=== PATIENT | female | born 1945 | race Caucasian/White ===

== ENCOUNTER → 2020-10-07 | Day surgery (SDC) | payer MEDICARE ==
[2020-10-02 14:25] LABS: BASOPHILS # (AUTO) 0.1 (0.0-0.1); BASOPHILS % 0.6 % (0.0-1.0); EOSINOPHILS % 0.2 % (0.0-6.0); HEMATOCRIT 32.5 % (34.2-44.1); HEMOGLOBIN 10.1 g/dL (12.0-16.0); LYMPHOCYTES # (AUTO) 2.4 (1.0-3.2); LYMPHOCYTES % 28.1 % (18.0-39.1); MEAN CORPUSCULAR HEMOGLOBIN 26.3 pg (28-32); MEAN CORPUSCULAR HGB CONC 31.1 g/dL (31-35); MEAN CORPUSCULAR VOLUME 84.6 fL (81-99); MONOCYTES # (AUTO) 0.8 (0.2-0.8); MONOCYTES % 9.4 % (4.4-11.3); NEUTROPHILS # (AUTO) 5.3 (2.1-6.9); NEUTROPHILS % 61.2 % (38.7-80.0); PLATELET COUNT 280 x10e3/uL (140-360); RED BLOOD COUNT 3.84 x10e6/uL (3.6-5.1); RED CELL DISTRIBUTION WIDTH 15.2 % (11.7-14.4)
[~2020-10-07] MED LIST: ATENOLOL50 MG PO; ELIQUIS5 MG PO; FENTANYL CITRATE/PF 100MCG/2 ML INJ ONE; HYDROCHLOROTH12.5 MG PO; MIDAZOLAM HCL 2 MG/2 ML VIAL ONE; NEURONTIN300 MG PO; NIFEDIPINE ER30 M1 PO; OMEPRAZOLE40 MG PO; OR PHACO EYE KIT ONE; PREOP PHACO EYE KIT ONE; TEGRETOL200 MG PO; TOPAMAX100 MG PO
== END | disposition home or self-care (01) ==
LOC: OR 09:25
PROVIDERS: ATTEND Ophthalmology
DX: H25.11 Age-related nuclear cataract, right eye (principal); G62.9 Polyneuropathy, unspecified; G50.0 Trigeminal neuralgia; I10 Essential (primary) hypertension; I48.91 Unspecified atrial fibrillation; E78.5 Hyperlipidemia, unspecified; K21.9 Gastro-esophageal reflux disease without esophagitis; Z88.1 Allergy status to other antibiotic agents; Z91.041 Radiographic dye allergy status; Z01.812 Encounter for preprocedural laboratory examination; Z20.822 Contact with and (suspected) exposure to COVID-19; Z87.891 Personal history of nicotine dependence
CPT/HCPCS: 36415; 66984; 85025; J2250; J3010; U0002; V2632

== ENCOUNTER → 2020-10-28 | Day surgery (SDC) | payer MEDICARE ==
[~2020-10-28] MED LIST changes: -FENTANYL CITRATE/PF 100MCG/2 ML INJ ONE; -MIDAZOLAM HCL 2 MG/2 ML VIAL ONE
[2020-10-28 12:32] VITALS: BP 123/63
== END | disposition home or self-care (01) ==
LOC: OR 09:18
PROVIDERS: ATTEND Ophthalmology
DX: H25.12 Age-related nuclear cataract, left eye (principal); M81.0 Age-related osteoporosis without current pathological fracture; G50.0 Trigeminal neuralgia; G43.909 Migraine, unspecified, not intractable, without status migrainosus; K21.9 Gastro-esophageal reflux disease without esophagitis; I10 Essential (primary) hypertension; I48.91 Unspecified atrial fibrillation; M41.9 Scoliosis, unspecified; Z01.812 Encounter for preprocedural laboratory examination; Z20.822 Contact with and (suspected) exposure to COVID-19; Z79.02 Long term (current) use of antithrombotics/antiplatelets
CPT/HCPCS: 66984; U0002; V2632

== ENCOUNTER 2022-03-24 15:00 | Inpatient (IN) | payer MEDICARE, OTHER ==
[~2022-03-24] VITALS: Ht 180.3 cm; Wt 94.6 kg
[~2022-03-24 15:00] MED LIST changes: -OR PHACO EYE KIT ONE; -PREOP PHACO EYE KIT ONE
[2022-03-24] MEDS ORDERED: ACETAMINOPHEN 325 MG TAB PO ONE (15:15)
[2022-03-24] MEDS ORDERED: Morphine 4mg INJECTION 4 MG/ML INJ IV PRN (17:15)
[2022-03-24] MEDS: ONDANSETRON HCL INJ 2MG/ML 2ML 2 MG/ML VIAL IV PRN (18:45)
[2022-03-24] MEDS: HYDROMORPHONE 1MG/1ML INJ IV PRN (18:46)
[2022-03-24 18:51] LABS: BASOPHILS # (AUTO) 0.1 (0.0-0.1); BASOPHILS % 0.5 % (0.0-1.0); EOSINOPHILS % 0.3 % (0.0-6.0); HEMOGLOBIN 12.6 g/dL (12.0-16.0); LYMPHOCYTES # (AUTO) 1.3 (1.0-3.2); LYMPHOCYTES % 13.1 % (18.0-39.1); MEAN CORPUSCULAR HGB CONC 34.1 g/dL (31-35); MEAN CORPUSCULAR VOLUME 91.1 fL (81-99); MONOCYTES # (AUTO) 0.4 (0.2-0.8); MONOCYTES % 4.5 % (4.4-11.3); NEUTROPHILS # (AUTO) 7.8 (2.1-6.9); PLATELET COUNT 237 x10e3/uL (140-360); RED BLOOD COUNT 4.06 x10e6/uL (3.6-5.1); RED CELL DISTRIBUTION WIDTH 13.3 % (11.7-14.4)
[2022-03-24 18:57] LABS: INR 0.89; PROTHROMBIN TIME 12.9 seconds (11.9-14.5)
[2022-03-24 18:58] LABS: PARTIAL THROMBOPLASTIN TIME 27.3 seconds (23.8-35.5)
[2022-03-24 19:03] LABS: ANION GAP 16.1 mmol/L (8-16); CALCIUM 9.3 mg/dL (8.4-10.2); CREATININE, SERUM 0.66 mg/dL (0.57-1.11); POTASSIUM 4.1 mmol/L (3.5-5.1)
[2022-03-24] MEDS: HYDROCODONE/APAP 10MG-325MG TAB PO PRN (20:44)
[2022-03-24 21:12] VITALS: BP 110/57
[2022-03-24 22:00] VITALS: BP 124/81
[2022-03-25] VITALS: BP 107/55
[2022-03-25 00:48] VITALS: BP 124/81
[2022-03-25] MEDS: HYDROMORPHONE 1MG/1ML INJ IV PRN ×3 (01:14→21:01)
[2022-03-25] MEDS: SODIUM CHLORIDE 0.9% 1000ML 1,000 ML IV SCH ×2 (01:26→19:45)
[2022-03-25] MEDS: SODIUM CHLORIDE 1 GM TAB PO SCH ×2 (01:29→03:00)
[2022-03-25 04:00] VITALS: BP 94/45
[2022-03-25 08:00] VITALS: BP_SYST 94; BP_DIAS 54; BP_DIAS 59
[2022-03-25] MEDS: ONDANSETRON HCL INJ 2MG/ML 2ML 2 MG/ML VIAL IV PRN ×3 (09:00→21:01)
[2022-03-25 12:00] VITALS: BP 113/49
[2022-03-25] MEDS: HYDROCODONE/APAP 10MG-325MG TAB PO PRN ×2 (13:14→18:50)
[2022-03-25 13:32] LABS: BASOPHILS % 0.3 % (0.0-1.0); EOSINOPHILS % 0.3 % (0.0-6.0); HEMATOCRIT 27.5 % (34.2-44.1); HEMOGLOBIN 8.9 g/dL (12.0-16.0); LYMPHOCYTES # (AUTO) 1.4 (1.0-3.2); LYMPHOCYTES % 21.3 % (18.0-39.1); MEAN CORPUSCULAR HEMOGLOBIN 30.9 pg (28-32); MEAN CORPUSCULAR HGB CONC 32.4 g/dL (31-35); MEAN CORPUSCULAR VOLUME 95.5 fL (81-99); MONOCYTES # (AUTO) 0.7 (0.2-0.8); NEUTROPHILS # (AUTO) 4.4 (2.1-6.9); NEUTROPHILS % 66.8 % (38.7-80.0); PLATELET COUNT 151 x10e3/uL (140-360); RED BLOOD COUNT 2.88 x10e6/uL (3.6-5.1); RED CELL DISTRIBUTION WIDTH 13.2 % (11.7-14.4)
[2022-03-25 13:44] LABS: INR 0.93; PROTHROMBIN TIME 13.3 seconds (11.9-14.5)
[2022-03-25 13:45] LABS: PARTIAL THROMBOPLASTIN TIME 26.5 seconds (23.8-35.5)
[2022-03-25 13:54] LABS: ALBUMIN/GLOBULIN RATIO 1.1 (0.8-2.0); ANION GAP 11.5 mmol/L (8-16); CALCIUM 8.4 mg/dL (8.4-10.2); CREATININE, SERUM 0.59 mg/dL (0.57-1.11); POTASSIUM 4.5 mmol/L (3.5-5.1)
[2022-03-25 16:00] VITALS: BP 122/51
[2022-03-25] MEDS ORDERED: FLONASE ALLERG9.9 ML INH (20:00)
[2022-03-25] MEDS ORDERED: FIBER TABS625 MG PO (20:00)
[2022-03-25] MEDS ORDERED: LEVOTHYROXINE50 MCG PO (20:00)
[2022-03-25] MEDS ORDERED: CEPHALEXIN500 MG PO (20:00)
[2022-03-26] VITALS (7 sets, daily range): BP systolic 117–157; BP diastolic 56–72
[2022-03-26 05:57] LABS: BASOPHILS % 0.3 % (0.0-1.0); EOSINOPHILS % 0.2 % (0.0-6.0); HEMATOCRIT 25.5 % (34.2-44.1); HEMOGLOBIN 8.6 g/dL (12.0-16.0); LYMPHOCYTES # (AUTO) 0.9 (1.0-3.2); LYMPHOCYTES % 13.9 % (18.0-39.1); MEAN CORPUSCULAR HEMOGLOBIN 31.3 pg (28-32); MEAN CORPUSCULAR HGB CONC 33.7 g/dL (31-35); MEAN CORPUSCULAR VOLUME 92.7 fL (81-99); MONOCYTES # (AUTO) 0.6 (0.2-0.8); MONOCYTES % 9.6 % (4.4-11.3); NEUTROPHILS # (AUTO) 4.8 (2.1-6.9); NEUTROPHILS % 75.7 % (38.7-80.0); PLATELET COUNT 136 x10e3/uL (140-360); RED BLOOD COUNT 2.75 x10e6/uL (3.6-5.1); RED CELL DISTRIBUTION WIDTH 13.6 % (11.7-14.4)
[2022-03-26 06:22] LABS: ANION GAP 11.9 mmol/L (8-16); CALCIUM 7.8 mg/dL (8.4-10.2); CREATININE, SERUM 0.53 mg/dL (0.57-1.11); POTASSIUM 3.9 mmol/L (3.5-5.1)
[2022-03-26] MEDS ORDERED: Vancomycin IV 1 GM VIAL ONE ×2 (13:42→14:41)
[2022-03-26] MEDS ORDERED: SODIUM CHLORIDE 0.9% 250ML 250 ML ONE (13:44)
[2022-03-26] MEDS ORDERED: HYDROMORPHONE 1MG/1ML INJ ONE (13:56)
[2022-03-26] MEDS ORDERED: ACETAMINOPHEN 1000 MG/100 ML 100 ML IV ONE (13:56)
[2022-03-26] MEDS ORDERED: FENTANYL CITRATE/PF 100MCG/2 ML INJ ONE (14:44)
[2022-03-26] MEDS ORDERED: MIDAZOLAM HCL 2 MG/2 ML VIAL ONE (14:44)
[2022-03-26] MEDS: SODIUM CHLORIDE 0.9% 1000ML 1,000 ML IV SCH (17:11)
[2022-03-26] MEDS: ATENOLOL 50 MG TAB PO SCH (17:14)
[2022-03-26] MEDS ORDERED: Vancomycin IV 1 GM in SODIUM CHLORIDE 0.9% 250ML 250 ML IV ONE (17:15)
[2022-03-26] MEDS: HYDROCODONE/APAP 10MG-325MG TAB PO PRN (19:30)
[2022-03-26] MEDS ORDERED: LIDOCAINE HCL 2% LOCAL INJ 5 ML SDV VIAL INJ ONE (19:32)
[2022-03-26] MEDS ORDERED: ACETAMINOPHEN 1000 MG/100 ML IV ONE (19:32)
[2022-03-26] MEDS ORDERED: SEVOFLURANE INHAL SOLN 250 ML PEN BTL ONE (19:32)
[2022-03-26] MEDS ORDERED: PROPOFOL IV EMULSION 10 MG/ML 20 ML VIAL ONE (19:32)
[2022-03-26] MEDS ORDERED: KETOROLAC TROMETHAMINE 30 MG/ML VIAL ONE (19:32)
[2022-03-26] MEDS ORDERED: DEXAMETHASONE SOD PHOS INJ 4 MG/ML SDV ONE (19:32)
[2022-03-26] MEDS ORDERED: ONDANSETRON HCL INJ 2MG/ML 2ML 2 MG/ML VIAL ONE (19:32)
[2022-03-26] MEDS ORDERED: POVIDONE IODINE 0.05% 0.05 % ML PO ONE (19:32)
[2022-03-26] MEDS: GABAPENTIN 300 MG CAP PO SCH (20:18)
[2022-03-26] MEDS: CARBAMAZEPINE 200 MG TAB PO SCH (20:18)
[2022-03-26] MEDS: HYDROMORPHONE 1MG/1ML INJ IV PRN (21:44)
[2022-03-27] VITALS (8 sets, daily range): BP systolic 94–130; BP diastolic 48–63
[2022-03-27] MEDS: LEVOTHYROXINE SODIUM 50 MCG TAB PO SCH (05:35)
[2022-03-27] MEDS ORDERED: LEVOTHYROXINE SODIUM 50 MCG TAB PO SCH (06:00)
[2022-03-27 06:14] LABS: BASOPHILS % 0.2 % (0.0-1.0); EOSINOPHILS % 0.1 % (0.0-6.0); HEMATOCRIT 23.9 % (34.2-44.1); HEMOGLOBIN 8.1 g/dL (12.0-16.0); LYMPHOCYTES # (AUTO) 1.1 (1.0-3.2); LYMPHOCYTES % 13.6 % (18.0-39.1); MEAN CORPUSCULAR HEMOGLOBIN 31.3 pg (28-32); MEAN CORPUSCULAR HGB CONC 33.9 g/dL (31-35); MEAN CORPUSCULAR VOLUME 92.3 fL (81-99); MONOCYTES # (AUTO) 0.9 (0.2-0.8); MONOCYTES % 10.5 % (4.4-11.3); NEUTROPHILS # (AUTO) 6.2 (2.1-6.9); PLATELET COUNT 146 x10e3/uL (140-360); RED BLOOD COUNT 2.59 x10e6/uL (3.6-5.1); RED CELL DISTRIBUTION WIDTH 13.5 % (11.7-14.4)
[2022-03-27 06:37] LABS: CALCIUM 8.1 mg/dL (8.4-10.2); CREATININE, SERUM 0.52 mg/dL (0.57-1.11)
[2022-03-27] MEDS: HYDROMORPHONE 1MG/1ML INJ IV PRN ×3 (08:35→19:02)
[2022-03-27] MEDS: CARBAMAZEPINE 200 MG TAB PO SCH ×3 (08:38→20:15)
[2022-03-27] MEDS: GABAPENTIN 300 MG CAP PO SCH ×3 (08:38→20:14)
[2022-03-27] MEDS: NIFEDIPINE CR 30 MG TAB PO SCH (08:38)
[2022-03-27] MEDS: ASPIRIN 81 MG CHEW TAB PO SCH (08:39)
[2022-03-27] MEDS: TOPIRAMATE 100 MG TAB PO SCH ×2 (08:39→16:22)
[2022-03-27] MEDS: ATENOLOL 50 MG TAB PO SCH ×2 (08:39→16:27)
[2022-03-27] MEDS: PANTOPRAZOLE SOD 40 MG TABEC PO SCH (08:40)
[2022-03-27] MEDS: HYDROCODONE/APAP 10MG-325MG TAB PO PRN ×3 (11:13→16:56)
[2022-03-27] MEDS: SODIUM CHLORIDE 0.9% 1000ML 1,000 ML IV SCH (12:13)
[2022-03-28] MEDS: SODIUM CHLORIDE 0.9% 1000ML 1,000 ML IV SCH (01:22)
[2022-03-28] MEDS: HYDROMORPHONE 1MG/1ML INJ IV PRN ×3 (03:48→16:31)
[2022-03-28] MEDS: LEVOTHYROXINE SODIUM 50 MCG TAB PO SCH (06:09)
[2022-03-28] MEDS: HYDROCODONE/APAP 10MG-325MG TAB PO PRN ×3 (06:22→20:59)
[2022-03-28 07:55] VITALS: BP 156/80
[2022-03-28 08:00] VITALS: BP 156/80
[2022-03-28] MEDS: ATENOLOL 50 MG TAB PO SCH ×2 (09:17→16:31)
[2022-03-28] MEDS: NIFEDIPINE CR 30 MG TAB PO SCH (09:17)
[2022-03-28] MEDS: GABAPENTIN 300 MG CAP PO SCH ×3 (09:17→20:59)
[2022-03-28] MEDS: CARBAMAZEPINE 200 MG TAB PO SCH ×3 (09:17→20:59)
[2022-03-28] MEDS: TOPIRAMATE 100 MG TAB PO SCH ×2 (09:18→17:00)
[2022-03-28] MEDS: ASPIRIN 81 MG CHEW TAB PO SCH (09:18)
[2022-03-28] MEDS: PANTOPRAZOLE SOD 40 MG TABEC PO SCH (09:18)
[2022-03-28 11:45] VITALS: BP 98/51
[2022-03-28 15:25] VITALS: BP 98/48
[2022-03-28 20:00] VITALS: BP 112/57
[2022-03-28 21:00] VITALS: BP 112/57
[2022-03-29] MEDS: HYDROMORPHONE 1MG/1ML INJ IV PRN (01:00)
[2022-03-29] MEDS: SODIUM CHLORIDE 0.9% 1000ML 1,000 ML IV SCH (01:05)
[2022-03-29] MEDS: LEVOTHYROXINE SODIUM 50 MCG TAB PO SCH (03:59)
[2022-03-29] MEDS: HYDROCODONE/APAP 10MG-325MG TAB PO PRN ×3 (03:59→19:39)
[2022-03-29 04:53] LABS: BASOPHILS % 0.4 % (0.0-1.0); EOSINOPHILS # (AUTO) 0.1 (0.0-0.4); EOSINOPHILS % 1.7 % (0.0-6.0); LYMPHOCYTES # (AUTO) 1.1 (1.0-3.2); LYMPHOCYTES % 23.7 % (18.0-39.1); MEAN CORPUSCULAR HEMOGLOBIN 30.5 pg (28-32); MEAN CORPUSCULAR HGB CONC 31.8 g/dL (31-35); MONOCYTES # (AUTO) 0.5 (0.2-0.8); MONOCYTES % 10.4 % (4.4-11.3); NEUTROPHILS # (AUTO) 3.1 (2.1-6.9); NEUTROPHILS % 63.4 % (38.7-80.0); PLATELET COUNT 157 x10e3/uL (140-360); RED CELL DISTRIBUTION WIDTH 13.5 % (11.7-14.4)
[2022-03-29 05:05] LABS: ALBUMIN 2.2 g/dL (3.5-5.0); ALBUMIN/GLOBULIN RATIO 0.8 (0.8-2.0); ANION GAP 14.8 mmol/L (8-16); CALCIUM 7.8 mg/dL (8.4-10.2); CREATININE, SERUM 0.49 mg/dL (0.57-1.11); POTASSIUM 3.8 mmol/L (3.5-5.1)
[2022-03-29 05:07] LABS: HEMATOCRIT 19.2 % (34.2-44.1); HEMOGLOBIN 6.1 g/dL (12.0-16.0)
[2022-03-29 05:37] LABS: HEMATOCRIT 18.7 % (34.2-44.1); HEMOGLOBIN 6.1 g/dL (12.0-16.0)
[2022-03-29] MEDS ORDERED: SODIUM CHLORIDE 0.9% 250ML 250 ML IV ONE (05:45)
[2022-03-29 07:55] VITALS: BP 107/51
[2022-03-29 07:56] VITALS: BP 107/51
[2022-03-29] MEDS: NIFEDIPINE CR 30 MG TAB PO SCH (09:00)
[2022-03-29] MEDS: PANTOPRAZOLE SOD 40 MG TABEC PO SCH (09:19)
[2022-03-29] MEDS: ASPIRIN 81 MG CHEW TAB PO SCH (09:19)
[2022-03-29] MEDS: TOPIRAMATE 100 MG TAB PO SCH ×2 (09:21→16:43)
[2022-03-29] MEDS: CARBAMAZEPINE 200 MG TAB PO SCH ×3 (09:22→19:40)
[2022-03-29] MEDS: GABAPENTIN 300 MG CAP PO SCH ×3 (09:22→19:40)
[2022-03-29] MEDS: ATENOLOL 50 MG TAB PO SCH ×2 (09:23→18:43)
[2022-03-29] MEDS ORDERED: SODIUM CHLORIDE 0.9% 250ML 250 ML ONE (09:27)
[2022-03-29] MEDS ORDERED: ONDANSETRON HCL 4 MG ORAL DISINTEGRATING TAB SL PRN (13:30)
[2022-03-29 16:00] VITALS: BP 114/49
[2022-03-29 19:46] LABS: BASOPHILS % 0.3 % (0.0-1.0); EOSINOPHILS # (AUTO) 0.1 (0.0-0.4); EOSINOPHILS % 1.6 % (0.0-6.0); HEMATOCRIT 27.7 % (34.2-44.1); HEMOGLOBIN 9.3 g/dL (12.0-16.0); LYMPHOCYTES # (AUTO) 0.9 (1.0-3.2); LYMPHOCYTES % 16.2 % (18.0-39.1); MEAN CORPUSCULAR HEMOGLOBIN 31.2 pg (28-32); MEAN CORPUSCULAR HGB CONC 33.6 g/dL (31-35); MONOCYTES # (AUTO) 0.6 (0.2-0.8); MONOCYTES % 9.5 % (4.4-11.3); NEUTROPHILS # (AUTO) 4.2 (2.1-6.9); NEUTROPHILS % 72.1 % (38.7-80.0); PLATELET COUNT 191 x10e3/uL (140-360); RED BLOOD COUNT 2.98 x10e6/uL (3.6-5.1); RED CELL DISTRIBUTION WIDTH 13.9 % (11.7-14.4)
[2022-03-29 22:42] VITALS: BP 104/47
[2022-03-30] VITALS (7 sets, daily range): BP systolic 113–134; BP diastolic 46–75
[2022-03-30] MEDS: HYDROMORPHONE 1MG/1ML INJ IV PRN ×3 (00:19→15:38)
[2022-03-30] MEDS: SODIUM CHLORIDE 0.9% 1000ML 1,000 ML IV SCH ×2 (00:20→21:20)
[2022-03-30 05:05] LABS: BASOPHILS % 0.4 % (0.0-1.0); EOSINOPHILS # (AUTO) 0.1 (0.0-0.4); EOSINOPHILS % 2.5 % (0.0-6.0); HEMATOCRIT 25.9 % (34.2-44.1); HEMOGLOBIN 8.5 g/dL (12.0-16.0); LYMPHOCYTES % 19.2 % (18.0-39.1); MEAN CORPUSCULAR HEMOGLOBIN 31.3 pg (28-32); MEAN CORPUSCULAR HGB CONC 32.8 g/dL (31-35); MEAN CORPUSCULAR VOLUME 95.2 fL (81-99); MONOCYTES # (AUTO) 0.5 (0.2-0.8); MONOCYTES % 9.4 % (4.4-11.3); NEUTROPHILS # (AUTO) 3.6 (2.1-6.9); NEUTROPHILS % 68.1 % (38.7-80.0); PLATELET COUNT 200 x10e3/uL (140-360); RED BLOOD COUNT 2.72 x10e6/uL (3.6-5.1); RED CELL DISTRIBUTION WIDTH 13.5 % (11.7-14.4)
[2022-03-30 05:29] LABS: ALBUMIN 2.6 g/dL (3.5-5.0); ALBUMIN/GLOBULIN RATIO 0.7 (0.8-2.0); CALCIUM 8.4 mg/dL (8.4-10.2); CREATININE, SERUM 0.54 mg/dL (0.57-1.11)
[2022-03-30] MEDS: LEVOTHYROXINE SODIUM 50 MCG TAB PO SCH (06:11)
[2022-03-30] MEDS: HYDROCODONE/APAP 10MG-325MG TAB PO PRN ×2 (06:11→12:26)
[2022-03-30] MEDS: NIFEDIPINE CR 30 MG TAB PO SCH (08:47)
[2022-03-30] MEDS: ATENOLOL 50 MG TAB PO SCH ×2 (08:48→17:56)
[2022-03-30] MEDS: CARBAMAZEPINE 200 MG TAB PO SCH ×3 (09:35→21:22)
[2022-03-30] MEDS: GABAPENTIN 300 MG CAP PO SCH ×3 (09:35→21:00)
[2022-03-30] MEDS: ASPIRIN 81 MG CHEW TAB PO SCH (09:35)
[2022-03-30] MEDS: PANTOPRAZOLE SOD 40 MG TABEC PO SCH (09:35)
[2022-03-30] MEDS: TOPIRAMATE 100 MG TAB PO SCH ×2 (09:36→17:56)
[2022-03-30 18:33] LABS: % IRON SATURATION 17 % (15-50); IRON 38 ug/dL (50-170); TOTAL IRON BINDING CAPACITY 221 ug/dL (261-478); TRANSFERRIN 158 mg/dL (180-382)
[2022-03-31] VITALS: BP 143/65
[2022-03-31 04:00] VITALS: BP 155/70
[2022-03-31] MEDS: HYDROCODONE/APAP 10MG-325MG TAB PO PRN ×4 (04:17→17:15)
[2022-03-31] MEDS: LEVOTHYROXINE SODIUM 50 MCG TAB PO SCH (05:04)
[2022-03-31 05:11] LABS: HEMATOCRIT 23.8 % (34.2-44.1)
[2022-03-31 07:15] VITALS: BP 139/62
[2022-03-31 08:00] VITALS: BP 139/62
[2022-03-31] MEDS ORDERED: NIFEDIPINE CR 30 MG TAB PO SCH (09:00)
[2022-03-31] MEDS: TOPIRAMATE 100 MG TAB PO SCH ×2 (09:39→16:07)
[2022-03-31] MEDS: ATENOLOL 50 MG TAB PO SCH ×2 (09:40→16:07)
[2022-03-31] MEDS: ASPIRIN 81 MG CHEW TAB PO SCH (09:40)
[2022-03-31] MEDS: CARBAMAZEPINE 200 MG TAB PO SCH ×2 (09:40→15:31)
[2022-03-31] MEDS: PANTOPRAZOLE SOD 40 MG TABEC PO SCH (09:40)
[2022-03-31] MEDS: GABAPENTIN 300 MG CAP PO SCH ×2 (09:40→15:31)
[2022-03-31 10:38] LABS: HEMATOCRIT 26.3 % (34.2-44.1); HEMOGLOBIN 8.8 g/dL (12.0-16.0)
[2022-03-31 11:15] VITALS: BP 183/70
[2022-03-31 15:13] VITALS: BP 138/55
[2022-03-31] MEDS: SODIUM CHLORIDE 0.9% 1000ML 1,000 ML IV SCH (16:03)
[2022-03-31] MEDS ORDERED: ENOXAPARIN SOD INJ 40 MG/0.4 ML SYR SC SCH (17:00)
[2022-04-01] MEDS ORDERED: FERROUS SULFATE 325 MG TAB PO SCH (09:00)
== END 2022-03-31 17:56 | DRG 481 ==
LOC: ER 15:14 → ERHOLD 17:02 → MED/SURG 21:20
PROVIDERS: ADMIT Family Medicine; ATTEND Family Medicine
PROC: 0QSC04Z Reposition Left Lower Femur with Internal Fixation Device, Open Approach (ICD-10-PCS; principal; 2022-03-24)
PROC: 30233N1 Transfusion of Nonautologous Red Blood Cells into Peripheral Vein, Percutaneous Approach (ICD-10-PCS; 2022-03-29)
PROC: 05HY33Z Insertion of Infusion Device into Upper Vein, Percutaneous Approach (ICD-10-PCS; 2022-03-31)
DX: S79.102A Unspecified physeal fracture of lower end of left femur, initial encounter for closed fracture (principal); E87.1 Hypo-osmolality and hyponatremia; W01.198A Fall on same level from slipping, tripping and stumbling with subsequent striking against other object, initial encounter; I10 Essential (primary) hypertension; I48.91 Unspecified atrial fibrillation; Z79.01 Long term (current) use of anticoagulants; Z88.5 Allergy status to narcotic agent; Z88.2 Allergy status to sulfonamides; Z88.8 Allergy status to other drugs, medicaments and biological substances; Z88.1 Allergy status to other antibiotic agents; Z91.041 Radiographic dye allergy status; Z91.012 Allergy to eggs; Z85.3 Personal history of malignant neoplasm of breast; Z74.09 Other reduced mobility; G62.9 Polyneuropathy, unspecified; Y92.512 Supermarket, store or market as the place of occurrence of the external cause; Z90.10 Acquired absence of unspecified breast and nipple; Z20.822 Contact with and (suspected) exposure to COVID-19; S82.55XA Nondisplaced fracture of medial malleolus of left tibia, initial encounter for closed fracture; I48.0 Paroxysmal atrial fibrillation; D64.9 Anemia, unspecified; E03.9 Hypothyroidism, unspecified
CPT/HCPCS: 0223U; 36415; 70450; 76000; 80048; 80053; 83540; 84466; 85014; 85018; 85025; 85610; 85730; 86850; 86900; 86920; 93005; 93306; 96361; 99285; J1100; J1170; J1650; J1885; J2001; J2250; J2405; J3010; J3370; J7030; J7050; P9016